=== PATIENT | male | born 1975 | race Caucasian/White ===

== ENCOUNTER 2019-12-17 01:26 | Emergency (ER) | payer BC, SELFPAY ==
[2019-12-17 01:27] VITALS: BP 150/99; PULSE 93; RESP 16; TEMP 36.8; O2SAT 96; BMI 35.5
--- NOTE | 2019-12-17 01:36 | HMH.EDGENADL ---
ED Disposition Clinical Impression: Bacterial conjunctivitis, Acute recurrent maxillary sinusitis Disposition: Home, Self-Care Condition on Discharge: Good Instructions: Sinusitis, DI for Eye Pain Prescriptions: Amoxicillin/Potassium Clav [Augmentin 875-125 Tablet] 1 tab PO Q12H 10 Days #20 tab Transmission Status: Pending to [id number] methylPREDNISolone [Medrol 4mg tab] 4 mg PO DIRECTED #21 tab Transmission Status: Pending to [id number] Referrals: PCP,No [Primary Care Provider] - - Critical Care Critical Care Time: No Attestation: On , the high probability of a clinically significant, sudden or life threatening deterioration of the following system(s) required my full and direct attention, intervention and personal management. The time I documented below is in addition to time spent performing reported procedures but includes the following listed in this critical care notation. Medical Decision Making - Medical Records Medical records reviewed: Yes: I reviewed the patient's medical records. - Zhou Inquiry Pt receiving controlled substance: No - Lab Data Lab results reviewed: Yes: I reviewed the patient's lab results. General Adult HPI - General Chief complaint: Eye Problems Stated complaint: Left Eye Swollen;Drainage from eye/nose Time Seen by Provider: 12/17/19 01:30 - History of Present Illness HPI narrative: 44-year-old male presents the ED with facial pain and also left eye redness and some swelling of his eyelids. He states the symptoms been going on for the past 2 to 3 days. Sinus pressure has been worsening over the last 24 hours. Patient denies any other symptoms. Patient does state that the pain in the sinuses is about 3 out of 10 and a pressure-like sensation on his left and he is just now starting to feel some pain over his right maxillary sinus as well. Patient denies any alleviating or exacerbating factors.Patient denies any recent cough or shortness of breath, patient denies any sore throat or headache, patient denies any loss of taste or smell, patient denies any malaise or fatigue, patient denies any abdominal pain nausea vomiting or diarrhea. - Related Data Home Medications Medication Instructions Recorded Confirmed Ramipril 20 mg PO DAILY 10/06/17 10/06/17 Previous Rx's Medication Instructions Recorded Albuterol Sulfate [Albuterol HFA 2 puffs IH Q6HP PRN #1 inh 05/20/18 Inhaler] Amoxicillin/Potassium Clav 1 tab PO Q12H #14 tab 05/20/18 [Augmentin 875-125 Tablet] Benzonatate [Tessalon Perle 100mg 100 mg PO TID PRN #30 cap 05/20/18 Cap] predniSONE [Prednisone 10mg Tab 10 mg PO UD DOSE PK #21 pack 05/20/18 Dose-Pack] Oxycodone HCl/Acetaminophen 1 tab PO QID PRN #16 tab 10/21/18 [Percocet 7.5/325mg tablet] Tamsulosin HCl [Flomax 0.4mg 0.4 mg PO HS #10 cap 10/21/18 capsule] Amoxicillin/Potassium Clav 1 tab PO Q12H 10 Days #20 tab 12/17/19 [Augmentin 875-125 Tablet] methylPREDNISolone [Medrol 4mg 4 mg PO DIRECTED #21 tab 12/17/19 tab] Allergies Allergy/AdvReac Type Severity Reaction Status Date / Time No Known Allergies Allergy Verified 10/21/18 01:43 [facility] History - Hepatitis A Screen Drug use history?: No Attestation statement:: This patient has been screened for Hepatitis A risk factors. I have reviewed the patient's past medical history: Yes - Social History Alcohol Intake: current Alcohol Intake Frequency:: holidays/special occasions only Occupational Status: employed Housing: house Household Members: spouse, children ROS Obtained: Yes All systems reviewed & no additional complaints - Constitutional Constitutional: Reports system reviewed and no additional complaints, except as docu - Eyes Eyes: Reports system reviewed and no additional complaints, except as docu - ENT Ears, Nose, Mouth, and Throat: Reports system reviewed and no additional complaints, except as docu
[2019-12-17 01:58] VITALS: BP 151/99; PULSE 91; RESP 16; TEMP 36.8; O2SAT 97
== END 2019-12-17 02:00 | disposition home or self-care (01) ==
PROVIDERS: Emergency Provider Family Medicine
DX: J01.01 Acute recurrent maxillary sinusitis (principal); H10.32 Unspecified acute conjunctivitis, left eye
CPT/HCPCS: 99281

== ENCOUNTER 2020-11-09 14:14 | Emergency (ER) | payer BC, SELFPAY ==
[2020-11-09 14:58] VITALS: BP 137/81; PULSE 90; RESP 20; TEMP 36.9; O2SAT 95; BMI 37.1
--- NOTE | 2020-11-09 15:01 | XR_ITS ---
PROCEDURE: XR CHEST 2V CLINICAL HISTORY: short of breath, cough COMPARISON: No exams were available for comparison FINDINGS: The cardiomediastinal silhouette and pulmonary vascularity are within normal limits. The lungs are clear without infiltrates, suspicious nodules, or pleural effusions. No acute bony abnormalities. IMPRESSION: No acute findings. Dictated by: Sonja Santana 11/09/2020 16:17 Sonja Santana in OV 11/09/2020 16:17
--- NOTE | 2020-11-09 15:32 | HMH.EDUTC ---
[facility] [place] Disposition Clinical Impression: Acute bronchitis Qualifiers: Bronchitis organism: unspecified organism Qualified Code(s): J20.9 - Acute bronchitis, unspecified Disposition: Home, Self-Care Condition on Discharge: Good Instructions: Acute Bronchitis, DI for Acute Bronchitis Additional Instructions: Drink plenty of fluids. Take tylenol or ibuprofen for pain or fever. Take the medications as directed. Follow up with your regular doctor. GO TO THE ER FOR ANY WORSENING SYMPTOMS Prescriptions: Albuterol Sulfate [Albuterol Sulfate Hfa] 2 puffs IH Q6HP PRN 30 Days #1 hfa.aer.[email or web address] PRN Reason: Shortness Of Breath Transmission Status: Received by [facility] Promethazine/Dextromethorphan [Promethazine-Dm Syrup] 5 ml PO Q6HP PRN #240 syrup PRN Reason: Cough Transmission Status: Received by [facility] Amoxicillin/Potassium Clav [Augmentin 875-125 Tablet] 1 tab PO Q12H 10 Days #20 tab Transmission Status: Received by [facility] methylPREDNISolone [Medrol] 4 mg PO DIRECTED 6 Days #21 tab.ds.pk Transmission Status: Received by [facility] Referrals: Richei Bhatti MD [Primary Care Provider] - Forms: Work/School Release Time of Disposition: 16:48 Medical Decision Making - Medical Records Medical records reviewed: No: I reviewed the patient's medical records. - Zhou Inquiry Pt receiving controlled substance: No Vital Signs: 11/09/20 14:58 11/09/20 16:43 Temperature 98.4 F 98.4 F Temperature Source Oral Pulse Rate 90 Pulse Rate [Left] 90 Respiratory Rate 20 20 Blood Pressure 137/81 Blood Pressure [Right Arm] 137/81 Blood Pressure Mean [Right Arm] 99 02 Sat by Pulse Oximetry 95 - Lab Data Lab Results 11/09/20 15:38: SARS-CoV-2 (PCR) Not detected, Influenza A Untype (PCR) Not detected, Influenza Type B (PCR) Not detected Orders (Tests/Meds): ED MEDICATIONS Discontinued Medications Generic Name Dose Route Start Last Admin Trade Name Freq PRN Reason Stop Dose Admin Ceftriaxone Sodium 1 gm 11/09/20 16:13 11/09/20 16:36 Ceftriaxone 1gm Vial IM 07/22/21 16:14 1 gm ONCE ONE Administration Protocol Lidocaine HCl 0 ml 11/09/20 16:13 11/09/20 16:36 Lidocaine 1% 5ml Pf Vial IM 11/09/20 16:14 5 ml ONCE ONE Administration Methylprednisolone Sodium Succinate 125 mg 11/09/20 16:13 11/09/20 16:35 Methylprednisolone Sod Succ 125mg Vial IM 11/09/20 16:14 125 mg ONCE ONE Administration - Radiology Data #1 Image(s): Chest Image Reviewed: Yes I reviewed the patient's radiology image, Yes I have reviewed radiologist's interpretation Preliminary Findings: Normal/NAD, No Infiltrates Seen PROCEDURE: XR CHEST 2V CLINICAL HISTORY: short of breath, cough COMPARISON: No exams were available for comparison FINDINGS: The cardiomediastinal silhouette and pulmonary vascularity are within normal limits. The lungs are clear without infiltrates, suspicious nodules, or pleural effusions. No acute bony abnormalities. IMPRESSION: No acute findings. Dictated by: Sonja Santana 11/09/2020 16:17 Sonja Santana in [facility] 11/09/2020 16:17 [facility] [place] HPI - General Stated complaint: soa, cough Time Seen by Provider: 11/09/20 15:32 Mode of Arrival: Ambulatory Source of Information: Patient Limitations: No Limitations Description of Symptoms (Recalled from Triage Doc. by RN): pt c/o soa, cough, pain in middle back when he takes a deep breath, and congestion. HEENT Symptoms (Recalled from RN notes): No Resp Symptoms (Recalled from RN notes): Yes (cough, soa and chest congestion) Skin Symptoms (Recalled from RN notes): No MS Symptoms (Recalled from RN notes): No Functional Status (Recalled from RN notes): na - History of Present Illness Provider Complaint: He states that he has had chest congestion and a cough since yesteday. He states that he feels pretty bad at this time. He has been
[2020-11-09 15:42] LABS: Coronavirus 19, PCR Not Detected (NotDetected); Influenza A, PCR Not Detected (NotDetected); Influenza B, PCR Not Detected (NotDetected)
[2020-11-09 16:43] VITALS: BP 137/81; PULSE 90; RESP 20; TEMP 36.9
== END 2020-11-09 16:53 | disposition home or self-care (01) ==
PROVIDERS: Emergency Provider Nurse Practitioner Family; PCP Family Medicine
DX: J20.9 Acute bronchitis, unspecified (principal)
CPT/HCPCS: 71046; 96372; 99202; G0463; U0003

== ENCOUNTER → 2022-05-15 14:41 | Outpatient (CLI) | payer BC, SELFPAY ==
--- NOTE | 2022-05-15 14:48 | XR_ITS ---
FINAL REPORT CLINICAL HISTORY: LT FOOT PAIN and swelling FINDINGS: LEFT FOOT Three views of the left foot demonstrate no acute fracture or dislocation. The joint spaces are preserved. The soft tissues are unremarkable. IMPRESSION: No acute bony abnormality. Reviewed, Interpreted and Dictated by Mariano Vicente MD Transcribed by Cheli Mendoza Authenticated and [facility]
== END ==
PROVIDERS: PCP Family Medicine; Visit Provider Nurse Practitioner Family
DX: M79.672 Pain in left foot (principal)
CPT/HCPCS: 73630

== ENCOUNTER → 2023-11-24 07:11 | Outpatient (CLI) | payer BC, SELFPAY | LOC: SL 07:11 | PROVIDERS: PCP Nurse Practitioner Family; Visit Provider Specialist | DX: G47.33 Obstructive sleep apnea (adult) (pediatric) (principal) | CPT/HCPCS: G0399 ==

== ENCOUNTER 2023-12-29 08:25 | Emergency (ER) | payer BC, SELFPAY ==
[2023-12-29 08:26] VITALS: BP 141/92; PULSE 95; RESP 16; TEMP 36.5; O2SAT 98; BMI 34.4
--- NOTE | 2023-12-29 08:32 | PC.NURSE ---
UA sent to lab
[2023-12-29 08:34] VITALS: BP 141/92; PULSE 79; O2SAT 97
[2023-12-29 08:42] LABS: Microscopic, Urine URINE MICROSCOPIC (MICROSCOPIC)
--- NOTE | 2023-12-29 08:42 | PC.NURSE ---
blood sent to lab
[2023-12-29] MEDS: KETOROLAC 30MG/ML VIAL 15 MG IV (08:43)
[2023-12-29] MEDS: LACTATED RINGERS 1000ML 1,000 ML 999 ML IV (08:44)
[2023-12-29] MEDS: ONDANSETRON 4MG/2ML VIAL 4 MG IV (08:44)
[2023-12-29 08:49] LABS: Basophils % 0.4 % (0.1-2.0); Eosinophils # 0.2 K/mm3 (0.0-0.4); Eosinophils % 1.7 % (0.1-12.0); Hematocrit 48.5 % (42.0-52.0); Hemoglobin 15.5 g/dL (14.1-18.0); Lymphocytes # 1.2 K/mm3 (0.7-4.5); Lymphocytes % 11.5 % (10-50); Mean Corpuscular HGB Conc 31.9 g/dL (31.8-35.4); Mean Corpuscular Hemoglobin 28.3 pg (27.0-31.2); Mean Corpuscular Volume 88.5 fl (80-94); Mean Platelet Volume 7.8 fl (7.4-10.4); Monocytes # 0.5 K/mm3 (0.1-1.0); Monocytes % 4.5 % (1.7-9.3); Neutrophils # 8.5 K/mm3 (1.8-7.8); Neutrophils % 81.9 % (37.0-80.0); Platelet Count 203 K/mm3 (142-424); Red Blood Count 5.48 M/mm3 (4.60-6.20); Red Cell Distribution Width 14.7 % (11.5-17.5); White Blood Count 10.3 K/mm3 (4.8-10.8)
[2023-12-29 08:50] LABS: Albumin Level 4.5 g/dl (3.5-5.0); Chloride 105 mmol/L (98-107); Potassium 4.2 mmoL/L (3.5-5.1); Sodium 139 mmol/L (136-145)
[2023-12-29 08:51] LABS: Appearance,Urine CLEAR (Clear); Bilirubin,Urine Negative (Negative); Blood, Urine Negative (Negative); Color,Urine YELLOW (Yellow); Glucose,Urine (UA) Negative (Negative); Ketones,Urine Negative (Negative); Leukocyte Esterase,Urine Negative (Negative); Nitrate,Urine Negative (Negative); Protein,Urine Negative (Negative); Specific Gravity, Urine 1.015 (1.005-1.030); Urobilinogen,Urine 0.2 EU/dl (0.2)
[2023-12-29 08:53] LABS: Alanine Aminotransferase 41 U/L (12-78); Albumin/Globulin Ratio 1.3 (1.1-1.8); Alkaline Phosphatase 50 U/L (38-126); Anion Gap 10.2 mEq/L (5-15); Aspartate Amino Transferase 38 U/L (17-59); Bilirubin,Total 1.2 mg/dl (0.2-1.3); Blood Urea Nitrogen 9 mg/dl (9-20); Calcium 8.9 mg/dl (8.4-10.2); Carbon Dioxide 28 mmol/L (22.0-30.0); Creatinine Clearance Estimated 191 mL/min (50-200); Estimated Glomerular Filt Rate 91 ml/min (>60); GFR (African American) 110 ML/MIN (>60); Globulin 3.4 g/dL (1.3-3.2); Glucose 115 mg/dl (74-100); Total Protein,Serum 7.9 g/dl (6.3-8.2)
--- NOTE | 2023-12-29 08:55 | CT_ITS ---
FINAL REPORT TECHNIQUE: After the administration of intravenous contrast, axial images were obtained through the abdomen and pelvis by computed tomography. This study was performed with technique to keep radiation doses as low as reasonably achievable, (ALARA). Individualized dose reduction techniques using automated exposure control or adjustment of the MA and/or KV according to the patient's size were employed. CLINICAL HISTORY: suprapubic and LLQ abd pain and ttp FINDINGS: Abdomen: The lung bases are clear. The liver is normal in size and attenuation. The spleen and gallbladder are unremarkable. The adrenals are normal. The pancreas is unremarkable. There are several, less than 3 mm nonobstructing left renal stones. There are probable small bilateral renal cysts which are likely benign. No follow-up recommended. The aorta is normal in caliber. There is no free fluid or adenopathy. There is a small umbilical hernia containing fat. Pelvis: The appendix is normal. There are inflammatory changes adjacent to a diverticulum in the proximal sigmoid colon consistent with acute diverticulitis. There is no evidence of abscess, bowel obstruction or free air. The urinary bladder is unremarkable. There is no free fluid or adenopathy. Bilateral L5 pars defects are noted. IMPRESSION: Findings consistent with acute sigmoid diverticulitis without abscess, bowel obstruction or free air. Reviewed, Interpreted and Dictated by Saad Tucker III, MD Transcribed by Dipmle Becerril Authenticated and [facility]
--- NOTE | 2023-12-29 08:57 | HMH.EDGENADL ---
Discharge Plan Disposition Patient Disposition: Home, Self-Care Prescriptions Prescriptions: New amoxicillin-pot clavulanate 875-125 mg tablet 1 tab PO BID 10 Days Qty: 20 0RF No Action omeprazole 20 mg capsule,delayed release(DR/EC) 20 mg PO DAILY Patient Comments: TAKE 1 CAPSULE BY MOUTH EVERY DAY phentermine [Adipex-P] 37.5 mg capsule 37.5 mg PO DAILY Rx Instructions: must administer 30 minutes before or 1-2 hours after breakfast ramipril 10 MG capsule 20 mg PO DAILY Patient Comments: TAKE 2 CAPSULES BY MOUTH EVERY DAY albuterol sulfate [Ventolin HFA] 18 GM HFA aerosol inhaler 2 puffs inhalation Q6HP PRN (Reason: Shortness Of Breath Or Wheezing) Qty: 1 0RF Referrals Follow up/Referrals: Saad Adorno MD [Staff Physician] - See instructions Ap Gautam APRN [Primary Care Provider] - See instructions Activity Restrictions/Add. Instructions Additional Instructions/Restrictions: Please follow-up in 1 [address] Adorno to ensure resolution of your symptoms and to schedule a possible outpatient colonoscopy once the acute inflammation improves. Your symptoms are consistent with acute uncomplicated sigmoid diverticulitis. Return with any significant worsening of your abdominal pain including fevers chills or intractable pain nausea and vomiting. Clinical Impressions Clinical Impression: Acute diverticulitis Instructions Patient Instructions: DI for Acute Abdominal Pain Print Language Print Language: Kazakh Discharge ED Provider: Mary Cantu General Adult HPI General Chief complaint: Abdominal Pain Stated complaint: severe abd pain- Lower L side Time Seen by Provider: 12/29/23 08:38 Mode of Arrival: Ambulatory Source of Information: Patient and Spouse Limitations: No Limitations Description of Symptoms (Recalled from ER Triage Doc. by RN): pt presents to ED with c/o abdominal pain. pt reports pain 6/10, located in left lower abdomen. pt still has appendix and gallbladder. symptoms began approx 1800. History of Present Illness HPI narrative: The patient is a 48-year-old male previously healthy aside from history of kidney stones presents today with suprapubic and left lower quadrant abdominal pain that began yesterday evening. Has had some intermittent component but has been constant and worsening since that time. States this feels different than kidney stone she has had in the past. Denies any urinary symptoms including dysuria frequency urgency hematuria denies any bowel symptoms including diarrhea fevers chills etc. No history of diverticulitis or any abnormalities from a bowel standpoint is never had a colonoscopy in the past. Related Data Home Medications ?Medication ?Instructions ?Recorded ?Confirmed ramipril 10 mg capsule 20 mg PO DAILY HTN 10/06/17 10/29/23 omeprazole 20 mg capsule,delayed 20 mg PO DAILY 06/12/22 10/29/23 release phentermine 37.5 mg capsule 37.5 mg PO DAILY 06/12/22 10/29/23 (Adipex-P) Previous Rx's ?Medication ?Instructions ?Recorded albuterol sulfate 90 mcg/actuation 2 puffs inhalation Q6HP PRN 05/20/18 aerosol inhaler (Ventolin HFA) Shortness Of Breath Or Wheezing #1 inh amoxicillin 875 mg-potassium 1 tab PO BID 10 days #20 tabs 12/29/23 clavulanate 125 mg tablet Allergies Allergy/AdvReac Type Severity Reaction Status Date / Time No Known Allergies Allergy Verified 10/29/23 11:51 [facility] Disclaimer: The information contained in this section may have been updated after the patient was seen, as this information can be updated by other users. Medical History (Updated 12/29/23 @ 09:55 by Mary Cantu MD) Sleep disorder breathing History of hypertension Obstructive sleep apnea Surgical History History of extraction of renal calculus History of shoulder surgery Family History (Updated 10/29/23 @ 13:52 by Jacque Macias) Mother Hypertension Father Hypertension Hyperlipidemia Afib Other Diabetes Stroke Social History (Updated 10/29/23 @ 13:54 by Jacque Macias) Smoking Status: Never smoker alcohol intake: current alcohol intake frequency: holidays/special occasions only current occupational status: employed Travel in the last 8 weeks: None household members: spouse and children housing: house marital status: number of children: 1 ROS Obtained: Yes All systems reviewed & no additional complaints except as documented Physical Exam General General appearance: alert Respiratory Respiratory exam: Present normal lung sounds bilaterally Cardiovascular Cardiovascular exam: Present regular rate Abdominal Exam Abdominal exam: Present other (Suprapubic and left lower quadrant tenderness palpation no rebound or guarding no tenderness elsewhere) Back Exam Back exam: Absent CVA tenderness (R) or CVA tenderness (L) Neurological Exam Neurological exam: Present alert and oriented X3 Medical Decision Making Zhou Inquiry Pt receiving controlled substance: No Vital Signs: 12/29/23 08:26 12/29/23 08:34 12/29/23 09:00 Temperature 97.7 F Temperature Source Oral Pulse Rate 79 83 Pulse Rate [Left Radial] 95 H Respiratory Rate 16 Blood Pressure 141/92 H 141/98 H Blood Pressure [Right Arm] 141/92 H Blood Pressure Mean [Right Arm] 108 02 Sat by Pulse Oximetry 98 97 95 Oxygen Delivery Method Room Air Room Air Room Air 12/29/23 09:14 12/29/23 09:30 Temperature Temperature Source Pulse Rate 87 82 Pulse Rate [Left Radial] Respiratory Rate Blood Pressure 137/90 137/87 Blood Pressure [Right Arm] Blood Pressure Mean [Right Arm] 02 Sat by Pulse Oximetry 91 L 95 Oxygen Delivery Method Room Air Room Air Lab Data Lab results reviewed: Yes I reviewed the patient's lab results. Lab Results 12/29/23 08:32: Urine Color Yellow, Urine Appearance Clear, Urine pH 7.0, Ur Specific [place] 1.015, Urine Protein Negative, Urine Glucose (UA) Negative, Urine Ketones Negative, Urine Blood Negative, Urine Nitrate Negative, Urine Bilirubin Negative, Urine Urobilinogen 0.2, Ur Leukocyte Esterase Negative, Urine RBC Occasional, Urine WBC None, Ur Squamous Epith Cells None, Urine Bacteria None 12/29/23 08:35: WBC 10.3, RBC 5.48, Hgb 15.5, Hct 48.5, MCV 88.5, MCH 28.3, MCHC 31.9, RDW 14.7, Plt Count 203, MPV 7.8, Neut % (Auto) 81.9 H, Lymph % (Auto) 11.5, Swain % (Auto) 4.5, Eos % (Auto) 1.7, Baso % (Auto) 0.4, Neut # (Auto) 8.5 H, Lymph # (Auto) 1.2, Swain # (Auto) 0.5, Eos # (Auto) 0.2, Baso # (Auto) 0.0, Sodium 139, Potassium 4.2, Chloride 105, Carbon Dioxide 28, Anion Gap 10.2, BUN 9, Creatinine 0.90, Estimated Creat Clear 191, Estimated GFR 91, Est GFR ( Amer) 110, Glucose 115 H, Calcium 8.9, Total Bilirubin 1.2, AST 38, ALT 41, Alkaline Phosphatase 50, Total Protein 7.9, Albumin 4.5, Globulin 3.4 H, Albumin/Globulin Ratio 1.3 12/29/23 08:35 12/29/23 08:35 Orders (Tests/Meds): ED MEDICATIONS Generic Name Dose Route Start Last Admin Trade Name Freq PRN Reason Stop Dose Admin Sodium Chloride 10 ml 12/29/23 08:39 Sodium Chloride 0.9% 10ml Flush Syringe IV 01/28/24 08:38 NEEDED PRN Maintain IV Site Sodium Chloride 10 ml 12/29/23 09:06 12/29/23 09:06 Sodium Chloride 0.9% 10ml Syr (Rad Only) IV 01/28/24 09:05 10 ml NEEDED PRN Administration Maintain IV Site Discontinued Medications Generic Name Dose Route Start Last Admin Trade Name Freq PRN Reason Stop Dose Admin Lactated Ringer's 1,000 mls @ 999 mls/hr 12/29/23 08:39 12/29/23 08:44 Lactated Ringer's 1000 Ml Bag IV 12/29/23 09:39 999 mls/hr .Q1H1M ONE Administration Iopamidol 75 ml 12/29/23 09:06 12/29/23 09:06 Iopamidol-370 (76%);100ml Bottle IV 12/29/23 09:07 75 ml ONCE ONE Administration Ketorolac Tromethamine 15 mg 12/29/23 08:39 12/29/23 08:43 Ketorolac 30mg/Ml Vial IV 12/29/23 08:40 15 mg ONCE ONE Administration Morphine Sulfate 4 mg 12/29/23 08:55 12/29/23 09:10 Morphine 4mg/Ml Syringe IV 12/29/23 08:56 4 mg ONCE ONE Administration Ondansetron HCl 4 mg 12/29/23 08:42 12/29/23 08:44 Ondansetron 4mg/2ml Vial IV 12/29/23 08:43 4 mg ONCE ONE Administration Ondansetron HCl 4 mg 12/29/23 08:55 12/29/23 09:10 Ondansetron 4mg/2ml Vial IV 12/29/23 08:56 Not Given ONCE ONE ORDERS Category Date Time Status CT abdomen pelvis w con Stat Cat Scan 12/29/23 08:55 Taken Complete Blood Count Auto Diff Stat Lab 12/29/23 08:35 Completed Comprehensive Metabolic Panel Stat Lab 12/29/23 08:35 Completed Urinalysis and Microscopic Stat Lab 12/29/23 08:32 Completed Medical Decision Narrative: 48 old male presents today with progressively worsening suprapubic and left lower quadrant abdominal pain with some intermittent component and significant tenderness on my exam. Differential includes nephrolithiasis, diverticulitis and colitis, cystitis, malignancy, perforated viscus etc. Will get a contrasted CT scan for further evaluation and management. IV fluids pain medicine nausea medicine have been administered will reassess. Reassessment 956 CT scan performed to person interpreted shows acute uncomplicated diverticulitis in the sigmoid region consistent with patient's symptoms. No evidence of perforation or abscess. I advised that he follow-up with general surgery for outpatient colonoscopy and to ensure resolution of symptoms also the patient will return with any significant worsening of his symptoms. Augmentin has been prescribed patient discharged in stable condition. Critical Care Critical Care Time Critical Care Time: No
[2023-12-29 09:00] VITALS: BP 141/98; PULSE 83; O2SAT 95
--- NOTE | 2023-12-29 09:02 | PC.NURSE ---
pt to ct ambulatory
[2023-12-29] MEDS: IOPAMIDOL-370 (76%);100ML BOTTLE 75 ML IV (09:06)
[2023-12-29] MEDS: SODIUM CHLORIDE 0.9% 10ML SYR (RAD ONLY) 10 ML IV (09:06)
[2023-12-29 09:08] LABS: RBC,Urine Occasional #/hpf (0-3)
--- NOTE | 2023-12-29 09:08 | PC.NURSE ---
pt back to room
[2023-12-29] MEDS: MORPHINE 4MG/ML SYRINGE 4 MG IV (09:10)
[2023-12-29 09:14] VITALS: BP 137/90; PULSE 87; O2SAT 91
[2023-12-29 09:30] VITALS: BP 137/87; PULSE 82; O2SAT 95
--- NOTE | 2023-12-29 09:41 | PC.NURSE ---
rounded on pt, no pain at this time
--- NOTE | 2023-12-29 09:57 | PC.NURSE ---
Dr. Cantu at bedside updating pt
[2023-12-29 10:01] VITALS: BP 127/83; PULSE 80; RESP 18; TEMP 36.5; O2SAT 96
== END 2023-12-29 10:06 | disposition home or self-care (01) ==
PROVIDERS: Emergency Provider Student in an Organized Health Care Education/Training Program; PCP Nurse Practitioner Family
DX: R10.32 Left lower quadrant pain (principal); K57.32 Diverticulitis of large intestine without perforation or abscess without bleeding; I10 Essential (primary) hypertension
CPT/HCPCS: 74177; 80053; 81001; 85025; 96361; 96374; 96375; 99285; J1885; J2270; J2405; J7120; Q9967

== ENCOUNTER 2024-01-30 07:51 | Outpatient (CLI) | payer BC, SELFPAY ==
--- NOTE | 2024-01-30 07:56 | CA_ITS ---
FINAL REPORT TECHNIQUE: Grayscale, color Doppler and duplex Doppler ultrasound of the kidneys, aorta and renal arteries was performed. Multiple velocities were measured. CLINICAL HISTORY: HTN,HX KIDNEY STONES COMPARISON: None FINDINGS: Aorta velocity: 124 cm/sec Right kidney: 10.5 cm. No evidence of hydronephrosis. Small right renal cyst. Right intrarenal RI: 0.45-0.51 Right renal artery velocity: 120 cm/sec. Right RAR (Renal artery-Aortic Ratio): 0.97 Left Kidney: 12.1 cm. No evidence of hydronephrosis. Small left renal cyst. Left intrarenal RI: 0.50-0.56 Left renal artery velocity: 147 cm/sec. Left RAR (Renal Artery-Aortic Ratio): 1.19 IMPRESSION: No evidence of significant renal artery stenosis. Small bilateral renal cysts. CT angiogram or postcontrast MR angiogram would be more sensitive for evaluation of possible renal artery stenosis. Reviewed, Interpreted and Dictated by Saad Tucker III, MD Transcribed by Marisa Cook Authenticated and [facility]
== END 2024-01-30 23:59 | disposition home or self-care (01) ==
LOC: RT 07:51
PROVIDERS: PCP Nurse Practitioner Family; Visit Provider Nurse Practitioner Family
DX: I10 Essential (primary) hypertension (principal)
CPT/HCPCS: 93976

== ENCOUNTER 2024-02-17 10:53 | Day surgery (SDC) | payer BC, SELFPAY ==
[2024-02-11 13:51] VITALS: BMI 34.9
[2024-02-17 11:20] VITALS: BP 150/94; PULSE 78; RESP 18; TEMP 36.9; O2SAT 97
[2024-02-17] MEDS: LACTATED RINGERS 1000ML 1,000 ML 25 ML IV (11:36)
--- NOTE | 2024-02-17 11:41 | P.PNANES_ITS ---
[facility] Disclaimer: The information contained in this section may have been updated after the patient was seen, as this information can be updated by other users. Medical History Sleep disorder breathing History of hypertension Obstructive sleep apnea Surgical History History of extraction of renal calculus History of shoulder surgery Family History Mother Hypertension Father Hypertension Hyperlipidemia Afib Other Diabetes Stroke Social History (Updated 02/11/24 @ 13:50 by Chacha Stanley RN) Smoking Status: Never smoker alcohol intake: current alcohol intake frequency: holidays/special occasions only substance use type: denies use current occupational status: employed Travel in the last 8 weeks: None household members: spouse and children housing: house marital status: number of children: 1 caffeine: Yes [facility] Anesthesia Checklist Patient Identification Patient Identification: Arm Band Structural Data Admitted From: Home Planned Operative Procedure/s: Colonoscopy Consent for Planned Operative Procedure(s) Verified: Yes Verified Documents: Surgical Consent and History and Physical NPO Status Verified Time NPO: 00:00 Additional verifications Anesthesia Reactions: No Airway Assessment Mallampati Score:: Class II C-Spine Mobility Assessed: Yes TMJ Mobility Assessed: Yes Dentition: Good Dentition Neurological Assessment Level of Consciousness: Awake, Alert and Appropriate Anesthesia Plan Anesthesia Risk discussed: Yes Anesthesia Plan: Verified ASA Class: II Anesthesia Type: MAC
--- NOTE | 2024-02-17 12:00 | [facility].SCOPE ---
Procedure: Date: 02/17/24 Patient Date of :: 1975 Procedure Performed:: Colonoscopy with polypectomy Indications:: Diverticulitis Performing Provider:: Lencho Camargo MD Referring Provider:: . Sedation:: Monitored anesthesia care Procedure:: After informed consent was obtained the patient was taken to the endoscopy suite. Sedation ensued after the patient was transferred to the left lateral decubitus position. Pulse, blood pressure, and oxygen saturation were monitored throughout the procedure. Digital rectal exam revealed no significant abnormality. The colonoscope was placed in position. The entire colon was evaluated. The colonoscope was carefully removed and the patient was transferred to recovery in stable condition. Please see findings and specimens below for detail. Findings:: Bowel preparation moderate Large hemorrhoidal cushions Hemorrhoidal tags Sigmoid diverticulosis Moderate tortuosity Significant spasticity (particularly sigmoid) Polyps (see specimens) Specimens:: Periappendiceal polyp (cold biopsy forceps) Polyp at 60 cm (cold snare) Recommendations:: Timing of repeat colonoscopy is pending pathology but likely be between 2-3 years with alternate/extended bowel preparation secondary to moderate preparation, tortuosity, and spasticity. Complications:: No immediate Estimated blood obtained (mL): 1 Colonoscopy Component Colonoscopy Component Was a colonoscopy performed during today's procedure?: Yes Recommended follow up colonoscopy of at least 10 years?: No If no, follow up colonoscopy recommended in ___ years?: (See above) Reason for not recommending >/= 10 yr follow-up interval?: (See above)
[2024-02-17 12:02] VITALS: O2SAT 98
[2024-02-17 12:43] VITALS: BP 128/74; PULSE 77; RESP 18; TEMP 36.9; O2SAT 97
[2024-02-17 12:53] VITALS: BP 128/74; PULSE 80; RESP 18; O2SAT 97
[2024-02-17 13:03] VITALS: BP 124/78; PULSE 82; RESP 18; O2SAT 97
[2024-02-17 13:13] VITALS: BP 125/94; PULSE 81; RESP 18; O2SAT 95
== END 2024-02-17 13:13 | disposition home or self-care (01) ==
PROVIDERS: PCP Nurse Practitioner Family; Visit Provider Surgery
PROC: 0DJD8ZZ Inspection of Lower Intestinal Tract, Via Natural or Artificial Opening Endoscopic (ICD-10-PCS; CPT 45380; principal; 2024-02-17 12:30)
DX: K64.9 Unspecified hemorrhoids (principal); K57.30 Diverticulosis of large intestine without perforation or abscess without bleeding; K63.5 Polyp of colon
CPT/HCPCS: 45380; 45385; J7120

== ENCOUNTER 2024-05-18 15:10 | Outpatient (CLI) | payer BC, SELFPAY ==
--- NOTE | 2024-05-18 | CA_ITS ---
APPROVED REPORT EXAM: Comprehensive 2D, Doppler, and color-flow Echocardiogram Receptionist: Joanna Pradhan, BENJAMIN, RVS Ht: 6 ft 5 in Wt: 305lbs BSA: 2.68 BP: 124/86 mmHg Rhythm: Irregular with PVC's Indications: Pericardial Effusion per CT, KEARA, HTN 2D Dimensions IVSd 1.27 cm LVEF (Visual) 65.00 % PWd 1.35 cm LA Volume 73.80 mL LVDd 5.41 cm LA Volume Index 27.119590 mL/m2 (M/F) 16-34 LVDs 3.12 cm Left Atrium 3.74 cm M-Mode Dimensions RVDd 2.30 cm (0.9-2.6) LA Diam 4.37 cm (1.9-4.0) LVDd 5.76 cm (3.5-5.7) LVDs 4.72 cm (3.5-5.7) IVSd 1.33 cm (0.6-1.1) PWd 1.29 cm (0.6-1.1) EF (Teich) 47.90% EPSs 0.28 cm FS 24.60% EDV (Teich) 198.30 mL TAPSE 3.04 (<1.7) ESV (Teich) 103.40 mL LV Diastology E Decel Time 190 (160-240 msec) E/A Ratio 1.01 MED A' 9.20 cm/s LAT A' 12.00 cm/s Aortic Valve BETO Index 1.24 cm2/m2 AoV Peak Sascha. 129.0 (50-130 cm/s) AO Peak GR. 6.60 mmHg AO Mean GR. 3.30 (<5 mmHg) AO VTI 21.4 (18-25 cm) BETO (VTI) 3.41 (2.5-4.5 cm2) Mitral Valve MV A Velocity 52.0 (40-130 cm/s) E/A Ratio 1.01 Pulmonary Valve PV Peak Velocity 95.0 (50-150 cm/s) Left Ventricle The left ventricle is normal size. The left ventricular systolic function is normal. The left ventricular ejection fraction is within the normal range. There is normal left ventricular wall thickness. There is normal LV segmental wall motion. The left ventricular diastolic function is normal. LVEF is 55%. Right Ventricle The right ventricle is borderline dilated. The right ventricular systolic function is normal. Atria The left atrium size is normal. The right atrium size is normal. There is no Doppler evidence of interatrial shunt. Aortic Valve The aortic valve opens well. There is no aortic valvular stenosis. No aortic regurgitation is present. Mitral Valve The mitral valve is normal in structure. No evidence of mitral valve stenosis. There is no mitral valve regurgitation noted. Tricuspid Valve Tricuspid valve is grossly normal in structure and function. Trace tricuspid regurgitation. There is insufficient TR jet to estimate RVSP. Pulmonic Valve The pulmonary valve is normal in structure. Trace pulmonic regurgitation. Great Vessels The aortic root is normal in size. IVC is normal in size and collapses >50% with inspiration. Pericardium Trivial, posterior pericardial effusion is present. No echo indications of tamponade. Other Information Study Quality: Fair Conclusion Normal biventricular systolic function. Borderline RV dilation. Trivial, posterior pericardial effusion. No echo indications of tamponade. Electronically signed by : Lia Busch MD 05/23/2024 22:57:21
== END 2024-05-18 23:59 | disposition home or self-care (01) ==
PROVIDERS: PCP Nurse Practitioner Family; Visit Provider Nurse Practitioner Family
DX: I31.39 Other pericardial effusion (noninflammatory) (principal)
CPT/HCPCS: 93306

== ENCOUNTER 2024-06-02 15:13 | Outpatient (CLI) | payer BC, SELFPAY ==
--- NOTE | 2024-06-02 15:21 | CA_ITS ---
APPROVED REPORT EXAM: Comprehensive 2D, Doppler, and color-flow Echocardiogram Crib Tender: BENJAMIN Garnica, RVS Ht: 6 ft 5 in Wt: 305lbs BSA: 2.68 BP: 124/86 mmHg Indications: KEARA, Reynaud''s, Trivial Pericardial effusion follow up 2D Dimensions IVSd 0.97 cm LVEF (Visual) 58.00 % PWd 0.91 cm LVDd 5.18 cm LVDs 3.91 cm M-Mode Dimensions LA Diam 4.36 cm (1.9-4.0) EPSs 0.85 cm Other Information Study Quality: Fair Conclusion This is a limited TTE to evaluate for pericardial effusion. Limited windows are obtained. In the available views, pericardial effusion is not visualized. Compared to prior study from 05/18/2024, the pericardial effusion has resolved. Electronically signed by : Lia Busch MD 06/04/2024 21:27:29
== END 2024-06-02 23:59 | disposition home or self-care (01) ==
PROVIDERS: PCP Physician Assistant; Visit Provider Physician Assistant
DX: I31.39 Other pericardial effusion (noninflammatory) (principal); I10 Essential (primary) hypertension; R93.1 Abnormal findings on diagnostic imaging of heart and coronary circulation; R94.31 Abnormal electrocardiogram [ECG] [EKG]; R06.00 Dyspnea, unspecified; G47.33 Obstructive sleep apnea (adult) (pediatric)
CPT/HCPCS: 93308

== ENCOUNTER 2024-12-28 13:29 | Outpatient (CLI) | payer BC, SELFPAY ==
--- NOTE | 2024-12-28 13:31 | MR_ITS ---
FINAL REPORT TECHNIQUE: Multiplanar and multisequence imaging of the lumbar spine was obtained without contrast. CLINICAL HISTORY: RIGHT SIDED LBP. RIGHT LEG PAIN, NUMBNESS AND TINGLING. NO INJURY OR TRAUMA. FINDINGS: There is grade 1 anterolisthesis of L5 on S1. Alignment is otherwise normal.. Vertebral body height is preserved. The spinal cord ends at the level of L1. There is normal signal intensity within the substance of the distal spinal cord. No acute bone marrow edema or pathologic marrow replacement. There are Modic type I changes at L4-5. Small bilateral, T2 hyperintense renal lesions are seen which are likely cysts. No acute paraspinal abnormality is identified. L1-2: There is no focal disc herniation, central canal stenosis or neuroforaminal narrowing. L2-3: There is no focal disc herniation, central canal stenosis or neuroforaminal narrowing. L3-4: Very mild annular disc bulge with mild facet osteoarthropathy. No significant central canal stenosis or neuroforaminal narrowing. L4-5: Annular disc bulge with degenerative endplate changes and facet osteoarthropathy. There is minimal central canal stenosis. There is severe right with mild to moderate left neuroforaminal narrowing. L5-S1: Annular disc bulge with degenerative endplate changes and facet osteoarthropathy. There is no significant central canal stenosis. There is severe bilateral neuroforaminal narrowing. IMPRESSION: Grade 1 anterolisthesis of L5 on S1. Degenerative disc disease, most pronounced at L5-S1. Reviewed, Interpreted and Dictated by Winnie Burgess MD Transcribed by Dimple Becerril Authenticated and [facility]
--- OUTSIDE RECORDS SUMMARY | 2024-12-28 13:35 | XMS_ITS | Clinical Summary ---
Author Organization Healthcare Address [address] [place] [address] Care Team Providers Care Help Desk Engineer Name Role Phone Ap Gautam APRN Primary Care Provider [phone] Allergies No known active allergies Medications ramipril (Altace) 10 MG capsule Take 1 capsule (10 mg) by mouth 1 (one) time each day. 20mg 02/27/2024 Active omeprazole (PriLOSEC) [address] capsule Take 1 capsule (20 mg) by mouth 1 (one) time each day. 02/24/2024 Active Airsupra 90-80 MCG/ACT aerosol Take 2 puffs by mouth if needed. 12/12/2023 Active acetaminophen (Tylenol 8 Hour) 650 MG ER tablet Take 1 tablet (650 mg) by mouth every 8 (eight) hours if needed for mild pain. Do not crush, chew, or split. Active amLODIPine (Norvasc) 5 MG tabletIndicatio ns:Raynaud's phenomenon without gangrene TAKE 1 TABLET BY MOUTH 1 TIME EACH DAY. 30 tablet 07/11/2024 Active Active Problems Problem Noted Date Diagnosed Date Raynaud's phenomenon without gangrene 04/05/2024 Resolved Problems Problem Noted Date Diagnosed Date Resolved Date Hypertensive disorder 04/19/20242023 Acute bronchitis 04/05/2024 04/05/2024 Acute diverticulitis 04/05/2024 024 Acute recurrent maxillary sinusitis 04/05/2024 04/05/2024 Arthralgia of ankle, left 04/05/2024 Bacterial conjunctivitis 04/05/2024 Cough 04/05/2024 04/05/2024 Foot pain, right 04/05/2024 04/05/2024 Obstructive sleep apnea 04/05/202403/21 Pronation of left foot 04/05/202404/05 Renal colic on right side 04/05/2024 Sinusitis 04/05/2024 04/05/2024 Sleep disorder breathing 04/05/2024 Diverticular disease 02/19/2024 024 Obesity 07/15/2022 04/19/2024 Immunizations Immunization Administration Dates Next Due Influenza, seasonal, injectable 01/22/2024 Social History Tobacco Use Types Packs/Day Years Used Date Smoking Tobacco: Never Smokeless Tobacco: Former Chew Tobacco Cessation:Counseling Given: Not Answered Comments:Current user of nicotine pouches Alcohol Use Standard Drinks/Week Comments Yes 5 (1 standard drink = 0.6 oz pur e alcohol) PHQ-2 Answer Date Recorded Patient Health Questionnaire-2 Score 0 04/19/2024 Sex and Gender Information Value Date Recorded Sex Assigned at Not on file Legal Sex Male 7:41 AM EST Gender Identity Not on file Sexual Orientation Not on file Last Filed Vital Signs Vital Sign Reading Time Taken Comments Blood Pressure 120/85 04/19/2024 10:24 AM EST Pulse 84 04/19/2024 10:24 AM EST Temperature 36.9 C (98.4 F) 04/19/2024 10:24 AM EST Respiratory Rate - - Oxygen Saturation 96% 04/19/2024 10:24 AM EST Inhaled Oxygen Concentration - - Weight 139 kg (306 lb) 04/19/2024 10:24 AM EST Height 195.6 cm (6' 5 ) 04/19/2024 10:24 AM EST Body Mass Index 36.29 04/19/2024 10:24 AM EST Plan of Treatment Health Maintenance Due Date Last Done Comments [facility]-HIV Screening 1975 [facility]-Hepatitis C Screening 1975 [facility]-/Child/Adol SDOH Screenings 1975 [facility]- SDOH Screenings 1995 [facility]-Adult SDOH Screenings 1995 [facility]-DTaP,Tdap,and Td Vaccine s (1 - Tdap) 01/14/1996 [facility]-Hepatitis B Vaccines (1 of 3 - 19+ 3-dose series) 01/14/1996 [facility]-Pneumococcal Vaccine: Pediatrics (0 to 5 Years) and At-Risk Patients (6 to 49 Years) (1 of 2 - PCV) 01/14/1996 CT Colonography 2022 Colonoscopy 2022 FIT-DNA 2022 FIT 2022 FOBT 2022 Sigmoidoscopy 2022 [facility]-Colorectal Cancer Screening 2022 [id number] Vaccine ( - season) 2023 04/28/2021, 08/11/2020, 07/11/2020 [facility]-Influenza Vaccine (#1) 2024 01/22/2024 [facility]-Depression Screening 04/19/2025 04/19/2024 [facility]-Zoster Vaccines (1 of 2) 2027 [facility]-Obesity Intervention Completed 024, 04/05/2024 HPV Vaccines Aged Out No longer eligi ble based on patient's age to complete this topic [facility]-HIB Vaccines Aged Out No longer e ligible based on patient's age to complete this topic [facility]-Hepatitis A Vaccines Aged Out No longer eligible based on patient's age to complete this topic [facility]-IPV Vaccines Aged Out No longer e ligible based on patient's age to complete this topic [facility]-Rotavirus Vaccines Aged Out No lo nger eligible based on patient's age to complete this topic Insurance ANTH Care Teams Help Desk Engineer Relationship Specialty Start Date End Date Ap Gautam, MELONIE [address] [place] [address] PCP - General 03/23/24
== END 2024-12-28 23:59 | disposition home or self-care (01) ==
PROVIDERS: PCP Nurse Practitioner Family; Visit Provider Nurse Practitioner Family
DX: M43.17 Spondylolisthesis, lumbosacral region (principal); M51.379 Other intervertebral disc degeneration, lumbosacral region without mention of lumbar back pain or lower extremity pain
CPT/HCPCS: 72148